=== PATIENT | female | born 1985 | race Caucasian/White ===

== ENCOUNTER 2019-05-07 22:52 | Emergency (ER) | payer OTHER, SELFPAY ==
--- NOTE | 2019-05-07 23:01 | ED.GIBLEED ---
HPI - GI Bleed General Chief complaint: GI Bleed Stated complaint: bloody stool Time Seen by Provider: 05/07/19 23:01 Source: patient Mode of arrival: Ambulatory Limitations: no limitations History of Present Illness HPI Narrative: This is a 33-year-old female who comes to the emergency department complaint of bloody stools. Patient states she was sitting on the toilet, she had diarrhea had a syncopal episode. She states this is actually not unexpected for her. She often has had syncopal episodes while sitting on the toilet and having diarrhea. She states she has been diagnosed with IBS and intermittently has diarrhea but blood in her stool is not normal. She states it definitely seems to be coming from her rectum. Initially it was a small amount. Then there was some on the toilet paper but also in the stool, she states a collected at the bottom and was not opaque. She has had 4 episodes total this evening. She also complains of some abdominal pain. She states she intermittently has abdominal pain with diarrhea but will usually resolve and this has lingered. She denies any vaginal bleeding and states she has not had a period in about 4 months. She is 8 months , had 1 menstrual cycle which she states was quite intense and then has not had any further. She has been sexually active. No fevers, no chills, no nausea or vomiting. She denies any back or flank pain. she is currently on prazosin for PTSD, she has had sinus surgery, wisdom teeth, tonsils and adenoids. She denies any current allergies. Denies tobacco, occasional alcohol, no illicit. Related Data Allergies Allergy/AdvReac Type Severity Reaction Status Date / Time No Known Drug Allergies Allergy Verified 05/07/19 23:45 Review of Systems Review of Systems ROS Unobtainable: All systems reviewed & are unremarkable except as noted in HPI and below Patient History Medical History (Updated 05/08/19 @ 00:52 by Cecilia Clark DO) PTSD (post-traumatic stress disorder) (Acute) Surgical History (Updated 05/07/19 @ 23:33 by Cecilia Clark DO) H/O sinus surgery (Acute) H/O wisdom tooth extraction (Acute) History of tonsillectomy (Acute) Social History Smoking Status: Never smoker alcohol intake frequency: holidays/special occasions only Substance Use Type: does not use Exam Narrative Exam Narrative: GENERAL: Alert and oriented x three, obese, well-appearing female in mild distress. HEENT: Head normocephalic, atraumatic, EOMI, pupils reactive, face symmetric, moist mucous membranes NECK: Supple, full range of motion CARDIOVASCULAR: Regular rate and rhythm without murmurs, rubs or gallops. RESPIRATORY: Breath sounds equal bilaterally, no wheezes rales or rhonchi. ABDOMEN: Soft, obese, mild generalized tenderness greatest at the right lower quadrant. Normoactive bowel sounds all 4 quadrants. No guarding or rebound, rigidity, no mass. stool occult is negative patient did have some tenderness at the rectum, no hemorrhoids were noted. : No CVA tenderness EXTREMITIES: Normal range of motion, no clubbing or edema. Neurovascularly intact NEUROLOGICAL: Cranial nerves II through XII grossly intact. Moving all extremities SKIN: Warm, dry, no petechiae, no rashes or lesions. Initial Vital Signs Initial Vital Signs: Vital Signs Temperature 98.5 F 05/07/19 23:04 Pulse Rate 70 05/07/19 23:04 Respiratory Rate 15 05/07/19 23:04 Blood Pressure 120/87 05/07/19 23:04 Pulse Oximetry 100 05/07/19 23:04 Course Orders Ordered: ED Orders 05/07/19 21:50 HCG Quantitative Stat 05/07/19 23:05 Complete Blood Count AUTO DIFF Stat Comprehensive Metabolic Panel Stat Lipase Stat Type and Screen Stat 05/07/19 23:18 EKG-12 Lead Stat 05/07/19 23:28 US OB limited Stat US abdomen complete Stat Discontinued Medications Sodium Chloride (Normal Saline 0.9%) 1,000 mls @ 1,000 mls/hr IV BOLUS ONE Stop: 05/08/19 00:13 Last Infusion: 05/08/19 00:19 Dose: 0 mls/hr Documented by: Admin: 05/07/19 23:28 Dose: 1,000 mls/hr Documented by: MARIANELA Vital Signs Vital signs: Vital Signs - 8 hr 05/07/19 23:04 05/08/19 00:27 05/08/19 01:05 Temperature 98.5 F Pulse Rate 70 82 72 Respiratory Rate 15 18 15 Blood Pressure 120/87 117/68 Blood Pressure [Right Arm] 117/72 Pulse Oximetry 100 97 97 MDM - GI Bleed Lab Data Attestation: I reviewed the patient's lab results. Result diagrams: 05/07/19 23:05 05/07/19 23:05 Labs: Lab Results 05/07/19 05/07/19 05/07/19 Range/Units 21:50 23:05 23:05 WBC 11.7 H (4.5-11.0) X10^3/uL RBC 4.14 (4.0-5.2) X10^6/uL Hgb 11.9 L (12.0-16.0) g/dL Hct 35.3 L (36-46) % MCV 85.5 (80-100) fL MCH 28.7 (26-34) PG MCHC 33.6 (30-36) % RDW 13.7 (11.6-14.8) % Plt Count 192 (150-400) X10^3/uL Neut % (Auto) 74.0 (50-75) % Lymph % (Auto) 18.1 L (25-40) % Churchill % (Auto) 5.8 (3-14) % Eos % (Auto) 1.5 L (2-4) % Baso % (Auto) 0.6 (0-2) % Neut # (Auto) 8700 H (3377-8277) /uL Lymph # (Auto) 2100 (4251-5748) /uL Churchill # (Auto) 700 (0-900) /uL Eos # (Auto) 200 (0-450) /uL Baso # (Auto) 100 (0-100) /uL Sodium 135 L (137-145) mmol/L Potassium 3.8 (3.4-5.1) mmol/L Chloride 103 (98-107) mmol/L Carbon Dioxide 26 (22-32) mmol/L BUN 10 (7-17) mg/dL Creatinine 0.50 L (0.52-1.04) mg/dL Estimated GFR > 60.0 (>60) mL/min BUN/Creatinine Ratio 20.0 (6-22) Glucose 99 (70-100) mg/dL Calcium 9.2 (8.4-10.2) mg/dL Total Bilirubin 0.5 (0.2-1.3) mg/dL AST 24 (14-36) IU/L ALT 20 (<35) IU/L Alkaline Phosphatase 78 (38-126) U/L Total Protein 7.1 (6.3-8.2) g/dL Albumin 4.0 (3.5-5.0) g/dL Globulin 3.1 (1.7-4.1) g/dL Albumin/Globulin Ratio 1.3 (1.0-2.8) Lipase 70 (23-300) U/L HCG, Quant 61889 mIU/mL Blood Type Antibody Screen 05/07/19 Range/Units 23:05 WBC (4.5-11.0) X10^3/uL RBC (4.0-5.2) X10^6/uL Hgb (12.0-16.0) g/dL Hct (36-46) % MCV (80-100) fL MCH (26-34) PG MCHC (30-36) % RDW (11.6-14.8) % Plt Count (150-400) X10^3/uL Neut % (Auto) (50-75) % Lymph % (Auto) (25-40) % Churchill % (Auto) (3-14) % Eos % (Auto) (2-4) % Baso % (Auto) (0-2) % Neut # (Auto) (4057-5422) /uL Lymph # (Auto) (9374-4338) /uL Churchill # (Auto) (0-900) /uL Eos # (Auto) (0-450) /uL Baso # (Auto) (0-100) /uL Sodium (137-145) mmol/L Potassium (3.4-5.1) mmol/L Chloride (98-107) mmol/L Carbon Dioxide (22-32) mmol/L BUN (7-17) mg/dL Creatinine (0.52-1.04) mg/dL Estimated GFR (>60) mL/min BUN/Creatinine Ratio (6-22) Glucose (70-100) mg/dL Calcium (8.4-10.2) mg/dL Total Bilirubin (0.2-1.3) mg/dL AST (14-36) IU/L ALT (<35) IU/L Alkaline Phosphatase (38-126) U/L Total Protein (6.3-8.2) g/dL Albumin (3.5-5.0) g/dL Globulin (1.7-4.1) g/dL Albumin/Globulin Ratio (1.0-2.8) Lipase (23-300) U/L HCG, Quant mIU/mL Blood Type O Negative Antibody Screen Negative Point of Care Testing Test Results Positive Urine Dip Bedside Urine Glucose Negative Bedside Urine Bilirubin - Negative Bedside Urine Ketone - Negative Urine Specific [place] 1.005 Bedside Urine Occult Blood - Negative Bedside Urine pH 6.5 Bedside Urine Protein - Negative Bedside Urine Urobilinogen - Negative Bedside Urine Nitrite - Negative Bedside Urine Leukocytes - Negative Esterase Imaging Data Ob ultrasound: Radiologist's impression: Single live intrauterine gestation at 17 weeks and 3 days. Breech presentation. Normal fluid volume. Posterior placenta without previa or abruption. Heart rate 153. US - abdomen: Radiologist's impression: Mildly enlarged liver with normal echogenicity. Right lobe rounded echogenic 12 x 13 x 10 mm lesion with mild sound through enhancement. Left lobe echogenic lesion measuring 11 x 8 x 9 mm with feet sound 3 enhancement. There is no gallstones or biliary dilation. Mildly enlarged liver with solitary right and left lobe hemangiomas with no other acute changes. ECG Data Attestation: I personally reviewed and interpreted this ECG as follows: Prior ECG tracings: not available for review Interpretation: Sinus rhythm rate of 66 P are 156 QRS of 91 and QTC T of 414. No ST elevation or depression appreciated. MDM Narrative Medical decision making narrative: Discussed with patient today's ultrasound findings and lab work. She is mildly anemic although this could be secondary to being , bingeing breast-feeding 4 months ago and being . I do not have priors for comparison. Her beta vitals have been stable without any tachycardia or hypotension. Patient was to find out that she is and she is approximately 17 weeks at least by ultrasound although this does fit with about 4 months of no menses. Patient and I discussed that she does have what appear to be hemangiomas on her ultrasound. Discussed that she should make her physician aware. We discussed that her bleeding stool culture was negative she has not had any obvious signs of vaginal bleeding and she states that it was definitely from the rectal area. She did have several episodes of diarrhea and was tender on rectal exam and could have some mild proctitis or colitis. We discussed ultrasound will not allow was to truly evaluate this and I would recommend watchful waiting as she has had no fevers or changes to her lab work that would suggest she needs to be urgently on antibiotics or steroids. She has been taking present Zosyn, category recommends proceeding with caution and I encouraged her to discuss with her team who she is seeing today or this morning. Patient felt comfortable with this plan and we discussed strict return precautions and signs and symptoms to watch for. Patient did have another episode as she was preparing to leave the ER. On exam, it is rectal, BRB small amount of blood in toilet. Patient feels comfortable returning home and discussed signs/symptoms to watch for and reasons to return. Discharge Plan Departure Patient Disposition: Home Clinical Impression: , Bloody stools, Hemangioma of liver Discharge Date/Time: 05/08/19 01:06 Instructions: DI for Rectal Bleeding Activity Restrictions/Additional Instructions: Follow-up at your appointment today with you're team. You may take the disc with your ultrasound from today. I would recommend discussing your prazosin and whether you should continue this with her team before continuing. Take once daily. Return to the emergency department for fevers greater 100.4 F, persistent vomiting, increasing bloody stools, passing out, new chest pain, shortness of breath or abdominal pain or other new or concerning symptoms.
[2019-05-07 23:04] VITALS: BP 120/87; PULSE 70; RESP 15; TEMP 36.9; O2SAT 100; BMI 30.1
[2019-05-07 23:24] LABS: Add Manual Diff / Slide Review NO; Basophils Absolute Auto 100 /uL (0-100); Basophils Percent Auto 0.6 % (0-2); Eosinophils Absolute Auto 200 /uL (0-450); Eosinophils Percent Auto 1.5 % (2-4); Hematocrit 35.3 % (36-46); Hemoglobin 11.9 g/dL (12.0-16.0); Lymphocytes Absolute Auto 2100 /uL (1100-4500); Lymphocytes Percent Auto 18.1 % (25-40); Mean Corpuscular HGB Conc 33.6 % (30-36); Mean Corpuscular Hemoglobin 28.7 PG (26-34); Mean Corpuscular Volume 85.5 fL (80-100); Monocytes Absolute Auto 700 /uL (0-900); Monocytes Percent Auto 5.8 % (3-14); Neutrophils Absolute Auto 8700 /uL (1500-7000); Platelet Count 192 X10^3/uL (150-400); Red Blood Cell Count 4.14 X10^6/uL (4.0-5.2); Red Cell Distribution Width 13.7 % (11.6-14.8); White Blood Cell Count 11.7 X10^3/uL (4.5-11.0)
[2019-05-07] MEDS: SODIUM CHLORIDE 0.9% 1,000 ML 1000 ML IV (23:28)
--- NOTE | 2019-05-07 23:28 | DI.US.S_ITS ---
PROCEDURE: US OB LIMITED INDICATIONS: RECTAL BLEEDING, PAIN OUTSIDE/PRIOR DATING DATA: Last menstrual period (LMP): Not known. LMP-based estimated date of delivery (DOMINICK): Not applicable. First dating scan (date and location): 05/07/19. Estimated date of delivery (DOMINICK) from first dating scan: 10/12/19. TECHNIQUE: Real-time scanning was performed of the fetus, with image documentation and biometric measurements. Endovaginal scanning: Performed COMPARISON: None. FINDINGS: General: A single living intrauterine gestation is present. Presentation: Breech Placenta: Placental position is posterior, without previa. Amniotic fluid index: 13.3 cm, normal range is 5-24 cm. heart rate: 153 beats per minute. Maternal cervical canal: 3.3 cm long. Normal lower limit is 2.5 cm. biometrics: Biparietal diameter: 17 weeks 4 days Head circumference: 17 weeks 2 days Abdominal circumference: 17 weeks 5 days Femur length: 17 weeks 2 days Estimated gestational age from initial scan: not applicable. Composite gestational age from present scan: 17 weeks 3 days Estimated weight: 197 g Measurement variability for biometric dating: +/- 7 days from 14 weeks to 15 weeks 6 days gestation, +/- 10 days from 16 weeks to 21 weeks 6 days gestation, +/- 2 weeks from 22 weeks to 27 weeks 6 days gestation, +/- 3 weeks for 28 weeks gestation or later. weight reference: 4500 g or EFW >90/95% is considered macrosomia or large for gestational age. EFW <10% is small for gestational age. EFW 5% or less is considered intra-uterine growth restriction. Other: Not applicable. IMPRESSION: Single living intrauterine with ultrasound estimated gestational age of 17 weeks 3 days corresponding to an ultrasound DOMINICK of 10/12/2019. Dictated by: Stacey Garcia MD, PhD on 05/08/2019 at 7:25 Approved by: Stacey Garcia MD, PhD on 05/08/2019 at 7:28
--- NOTE | 2019-05-07 23:28 | DI.US.S_ITS ---
PROCEDURE: US ABDOMEN COMPLETE INDICATIONS: RECTAL BLEEDING, PAIN TECHNIQUE: Real-time scanning was performed of the abdominal and retroperitoneal organs, with image documentation. COMPARISON: None. FINDINGS: Liver: Liver is normal in size and homogeneous in echotexture. Probable 1.2 x 1.0 x 1.3 right hepatic lobe and 1.1 x 0.8 x 0.9 cm left hepatic lobe hemangiomas. Gallbladder: Gallbladder is sonographically normal. No gallstones. No gallbladder wall thickening. No pericholecystic fluid. No sonographic Orozco sign. Biliary ducts: Intrahepatic bile ducts are non-dilated. Extrahepatic bile duct caliber measures 3.9 mm. Normal is 6-7 mm or less in diameter, or 10 mm or less post-cholecystectomy. Pancreas: Visualized portions of the pancreas are sonographically normal. Spleen: Spleen is normal in size and homogeneous in echotexture. Kidneys: Kidneys are normal in size and echotexture. Right kidney measures 11.5 cm long; left kidney measures 12.2 cm long. No hydronephrosis or nephrolithiasis. No solid masses. Aorta: Visualized aorta is normal in caliber at less than 3 cm. Distal abdominal aorta is not visualized due to bowel gas and cannot be evaluated. Iliacs: Not visualized due to bowel gas and cannot be evaluated. IVC: Intrahepatic inferior vena cava is patent. Miscellaneous: No free abdominal fluid. IMPRESSION: No cause of rectal bleeding or pain identified by sonographic evaluation. Dictated by: Stacey Garcia MD, PhD on 05/08/2019 at 7:21 Approved by: Stacey Garcia MD, PhD on 05/08/2019 at 7:24
[2019-05-07 23:33] LABS: Alanine Aminotransferase 20 IU/L (<35); Albumin Globulin Ratio 1.3 (1.0-2.8); Alkaline Phosphatase 78 U/L (38-126); Aspartate Aminotransferase 24 IU/L (14-36); Bilirubin Total 0.5 mg/dL (0.2-1.3); Blood Urea Nitrogen 10 mg/dL (7-17); Calcium 9.2 mg/dL (8.4-10.2); Carbon Dioxide 26 mmol/L (22-32); Chloride 103 mmol/L (98-107); Estimated Glomerular Filt Rate > 60.0 mL/min (>60); Globulin 3.1 g/dL (1.7-4.1); Glucose 99 mg/dL (70-100); HEMOLYSIS < 15 (0-50); Lipase 70 U/L (23-300); Potassium 3.8 mmol/L (3.4-5.1); Sodium 135 mmol/L (137-145); Total Protein 7.1 g/dL (6.3-8.2)
[2019-05-08 00:26] LABS: HCG Quantitative /Beta subunit 30877 mIU/mL
[2019-05-08 00:27] VITALS: BP 117/72; PULSE 82; RESP 18; O2SAT 97
[2019-05-08 01:05] VITALS: BP 117/68; PULSE 72; RESP 15; O2SAT 97
== END 2019-05-08 01:06 | disposition home or self-care (01) ==
PROVIDERS: Emergency Provider Emergency Medicine
DX: K92.1 Melena (principal); R55 Syncope and collapse; D18.03 Hemangioma of intra-abdominal structures; Z32.01 Encounter for pregnancy test, result positive
CPT/HCPCS: 36415; 76700; 76815; 80053; 81003; 81025; 83690; 84702; 85025; 86850; 86900; 86901; 93005; 96360; 99283; 99285